=== PATIENT | male | born 1970 | race Caucasian/White ===

== ENCOUNTER → 2024-11-27 | Outpatient (CLI) | payer MEDICARE, MEDICAID ==
--- NOTE | 2024-11-27 11:54 | PROCEDURE NOTE ---
Procedure Note Providers to CC ~ Interpretation: [place] EEG Note # Demographics Type of EEG Read: - Routine EEG - video Patient Location: Outpatient First Name: Kingsley Last Name: Citlali Date of : 1970 Age: 54 Gender: Male Facility: [facility] Time of Initial Page ([place] ): 11/27/2024 09:38 Time of Return Call ([place] Time): 11/27/2024 09:40 # EEG Interpretation Start Time of EEG Read ( Time): 11/27/2024 08:34 Stop Time of EEG Read (Wal[place] ): 11/27/2024 08:57 Duration: 0h 23m Technical Details: - The EEG electrodes were placed using the standard [employer] 10-20 system of electrode placement. Video and an accessory EKG lead were used during the course of this study. - This study was recorded using the [employer] EEG software Indication: - seizure # Description Photic Stimulation: Performed Hyperventilation: performed Phases Captured: - awake - drowsy Symmetry: symmetric Posterior Dominant Rhythm: - present, attenuates on eye opening 10 Hz Amplitude: normal Reactivity: yes Variability: yes Continuity: continuous # Abnormalities Stimulation: - photic stimulation does NOT cause abnormalities - hyperventilation does NOT cause abnormalities Epileptiform Abnormalities: - NOT present Focal Slowing: no Seizure: - NOT present # Impression Impression: normal # Clinical Correlation Clinical Correlation: A normal EEG does not exclude nor support the diagnosis of epilepsy. # Demographics First Name: Kingsley Last Name: Citlali Facility: [facility] JEIMY JAEGER MD Nov 27, 2024 11:54
== END | disposition home or self-care (01) ==
LOC: RAD 08:08
PROVIDERS: ATTEND Neuromusculoskeletal Medicine & OMM
DX: R41.3 Other amnesia (principal)
CPT/HCPCS: 95816

== ENCOUNTER → 2024-12-25 | Outpatient (CLI) | payer MEDICARE, MEDICAID ==
--- NOTE | 2024-12-25 13:29 | RADIOLOGY REPORT ---
INDICATION: ACUTE LOW BACK PAIN COMPARISON: DI LUMBAR SPINE COMPLTE on DOS: 11/20/23 TECHNIQUE: 3 views of the lumbar spine were obtained. FINDINGS: The lumbar vertebral alignment is normal. Multilevel degenerative changes at L4-L5 through L5-S1 causing moderate to severe neural foraminal an d spinal canal stenosis No acute fracture, vertebral compression deformity or aggressive osseous lesions. The paravertebral soft tissues are grossly unremarkable. IMPRESSION: No acute fracture or subluxation.
--- NOTE | 2024-12-25 13:41 | VASCULAR REPORT ---
EXAM: VASC VL MOSES ANKLE/BRACHIAL INDEX CLINICAL HISTORY: Claudication Peripheral vascular disease COMPARISON: None TECHNIQUE: Bilateral systolic ankle and brachial pressures are obtained, with ankle pulse volume waveforms and i ndices. FINDINGS: Pressures: Right Left Brachial 138 mmHg 120 mmHg PT 0 mmHg 0 mmHg YUNIOR 172 mmHg 104 mmHg MOSES: Right Left 1.25 0.87 Pulse volume waveforms: Triphasic waveforms IMPRESSION: Normal MOSES right leg. Moderate PAD left leg. 1.0-1.4: normal 0.91-0.99 borderline 0.9: abnormal (i.e. PAD) 0.4-0.9: [id number] PAD <0.4: suggestive of severe PAD
--- NOTE | 2024-12-25 13:48 | VASCULAR REPORT ---
BILATERAL Lower Extremity Arterial Duplex Date: 12/25/2024 10:49 AM Clinical History: pain Comparison: VASC VL ARTERIAL on DOS: 11/20/23 Technique: Duplex Doppler evaluation including color Doppler and spectral/pulsed waveform analysis of the lower extremity arteries was performed. Finding: RIGHT: Peak systolic velocities are as follows: LUMBER LOADER 126 cm/s Deep femoral 47 cm/s SFA proximal 118 cm/s SFA mid-portion 108 cm/s SFA distal 145 cm/s Popliteal 32 cm/s Posterior tibial occluded Dorsalis pedis 46 cm/s The waveforms are triphasic. LEFT: Peak systolic velocities are as follows: LUMBER LOADER 78 cm/s Deep femoral 70 cm/s SFA proximal 92 cm/s SFA mid-portion 162 cm/s SFA distal 43 cm/s Popliteal 64 cm/s Posterior tibial 28 cm/s Dorsalis pedis 47 cm/s The waveforms are triphasic with diastolic flow. REFERENCE VALUES, [facility] ([facility]) vascular Imaging Lab Criteria: Peak systolic velocity ranges (in cm/sec) are as follows: <150 cm/s - <20 % stenosis 150-200 cm/s - 20-49% stenosis 200-300 cm/s - 50-75% stenosis >300 cm/s -> 75% stenosis IMPRESSION: Moderate stenosis involving the left mid superficial femoral artery. Right distal posterior tibial artery appears occluded.
--- NOTE | 2024-12-25 15:10 | VASCULAR REPORT ---
Bilateral lower extremity venous duplex Clinical History: edema Comparison: VASC VL VENOUS on DOS: 11/20/23 Findings: Duplex Doppler evaluation of the deep venous systems of both lower extremities from the common femora l veins to the popliteal veins including color Doppler and spectral/pulsed waveform analysis was perf ormed. RIGHT SIDE: The common femoral vein demonstrates appropriate compressibility and waveform variability . There is compressibility/patency of the great saphenous vein at the proximal thigh . The femoral vein demonstrates appropriate compressibility and waveform variability . The deep femoral vein demonstrates appropriate compressibility and waveform variability . The popliteal vein demonstrates appropriate compressibility and waveform variability . There is normal compressibility at the tibioperoneal trunk. LEFT SIDE: Chronic nonocclusive thrombus noted in the mid and distal left in the femoral vein. No thrombus noted in bilateral lower extremities. There is compressibility/patency of the great saphenous vein at the proximal thigh . The deep femoral vein demonstrates appropriate compressibility and waveform variability . The popliteal vein demonstrates appropriate compressibility and waveform variability . There is normal compressibility at the tibioperoneal trunk. Impression: No right femoropopliteal venous thrombosis. Chronic nonocclusive thrombus noted in the mid and distal left in the femoral vein. No thrombus noted in bilateral lower extremities.
== END | disposition home or self-care (01) ==
LOC: VAS 10:08
PROVIDERS: ATTEND Student in an Organized Health Care Education/Training Program
DX: I82.512 Chronic embolism and thrombosis of left femoral vein (principal); I70.8 Atherosclerosis of other arteries; M79.604 Pain in right leg; M47.817 Spondylosis without myelopathy or radiculopathy, lumbosacral region; M48.07 Spinal stenosis, lumbosacral region; I73.9 Peripheral vascular disease, unspecified
CPT/HCPCS: 72110; 93922; 93925; 93970

== ENCOUNTER → 2024-12-25 | Outpatient (CLI) | payer MEDICARE, MEDICAID ==
--- NOTE | 2024-12-25 17:50 | RADIOLOGY REPORT ---
PROCEDURE: MR MRI LUMBAR SPINE INDICATION: LOW BACK PAIN Exam Date: 12/25/2024 12:27 PM COMPARISON: None TECHNIQUE: MRI lumbar spine without intravenous contrast. FINDINGS: The lumbar alignment is intact. There are degenerative endplate changes including modic endplate ch anges with anterior and lateral osteophytes throughout the lumbar spine. The visualized distal spinal cord and conus medullaris are within normal limits. The conus medullaris appears to terminate withi n normal limits. The visualized retroperitoneal and paraspinal soft tissues are unremarkable. The following axial levels are detailed below: T12-L1: Unremarkable. L1-L2: Unremarkable. L2-L3: Unremarkable. L3-L4: There is a mild circumferential disc bulge. No significant central canal or neuroforaminal s tenosis. L4-L5: There is a moderate circumferential disc bulge complicated by facet arthropathy associated w ith mild to moderate left neuroforaminal stenosis. No significant central canal stenosis. L5-S1: Unremarkable. IMPRESSION: 1. Mild degenerative disease worst at L4-5 where there is [id number] left neural foraminal sten osis. No significant central canal stenosis. HS:Y
== END | disposition home or self-care (01) ==
LOC: MRI 10:12
PROVIDERS: ATTEND Family Medicine
DX: M51.16 Intervertebral disc disorders with radiculopathy, lumbar region (principal); M54.50 Low back pain, unspecified; M25.78 Osteophyte, vertebrae; M48.061 Spinal stenosis, lumbar region without neurogenic claudication; M47.817 Spondylosis without myelopathy or radiculopathy, lumbosacral region; M47.26 Other spondylosis with radiculopathy, lumbar region
CPT/HCPCS: 72148